=== PATIENT | female | born 1975 | race Caucasian/White ===

== ENCOUNTER 2016-09-09 17:19 | Emergency (ER) | payer OTHER ==
[~2016-09-09] VITALS: Wt 68.9 kg
[~2016-09-09 17:19] MED LIST: BACTRIM DS 8001 TA1 PO; BACTROBAN CREAM15 GM T; BENADRYL25 MG PO; CIPRO500 MG PO; CIPROFLOXACIN500 MG PO; CLINDAMYCIN HC300 MG PO; DAYPRO600 M1 PO; FIORICET 325 MG1 TAB PO; FIORICET W/CODE1 CAP PO; FLEXERIL10 MG PO; FLEXERIL5 MG PO; FLONASE 0.05% 121 EA NAS; HYDROCODONE BIT1 T11 PO; MEDROL DOSEPAK4 MG PO; MOTRIN600 MG PO; MOTRIN800 MG PO; Motrin,Rufen800 MG PO; NAPROSYN500 MG PO; NKHM; PERCOCET 325 MG1 TA2 PO; PHENERGAN W/ DE30 ML PO; PREDNICOT10 MG PO; PREDNISONE10 MG PO; PREDNISONE20 M1 PO; PREDNISONE20 MG PO; PRILOSEC20 MG PO; PRILOSEC40 M1 PO; PROAIR HFA0.09 MG/AC INH; PYRIDIUM200 MG PO; REGLAN10 MG PO; ROBAXIN750 MG PO; SERTRALINE25 MG PO; STOMACH PILL PO; TRAMADOL HCL50 MG PO; ULTRAM50 MG PO; ZOFRAN ODT4 MG SL
[2016-09-09 17:33] VITALS: BP 152/100
[2016-09-09] MEDS ORDERED: PREDNISONE50 MG PO (17:52)
[2016-09-09] MEDS ORDERED: ZYRTEC10 M3 PO (17:52)
== END 2016-09-09 17:56 | disposition home or self-care (01) ==
LOC: ED 17:19
DX: T65.91XA Toxic effect of unspecified substance, accidental (unintentional), initial encounter (principal); R21 Rash and other nonspecific skin eruption; Z88.0 Allergy status to penicillin; Z88.1 Allergy status to other antibiotic agents; Z88.6 Allergy status to analgesic agent; Z88.8 Allergy status to other drugs, medicaments and biological substances; Z79.899 Other long term (current) drug therapy; Y92.9 Unspecified place or not applicable

== ENCOUNTER 2017-06-02 16:33 | Emergency (ER) | payer OTHER ==
[~2017-06-02] VITALS: Wt 72.6 kg
[~2017-06-02 16:33] MED LIST changes: +PREDNISONE50 MG PO; +ZYRTEC10 M3 PO
[2017-06-02 16:42] VITALS: BP 114/84
[2017-06-02] MEDS ORDERED: CLINDAMYCIN HC300 MG PO (17:13)
== END 2017-06-02 17:17 | disposition home or self-care (01) ==
LOC: ED 16:33
DX: S61.411A Laceration without foreign body of right hand, initial encounter (principal); Z88.0 Allergy status to penicillin; Z88.1 Allergy status to other antibiotic agents; Z88.6 Allergy status to analgesic agent; Z79.899 Other long term (current) drug therapy; W26.0XXA Contact with knife, initial encounter; Y93.89 Activity, other specified; Y92.89 Other specified places as the place of occurrence of the external cause; Y99.8 Other external cause status

== ENCOUNTER → 2017-09-11 | Outpatient (CLI) | payer OTHER ==
[2017-09-11 09:32] LABS: BASO % 0.5 % (0.0-1.0); EOS # 0.2 10*3/uL (0.0-0.4); EOS % 4.3 % (1.0-4.0); HEMATOCRIT 39.8 % (37.0-47.0); HEMOGLOBIN 13.2 g/dl (12.0-16.0); LYMPH # 1.4 10*3/uL (1.3-4.4); LYMPH % 32.2 % (27.0-41.0); MEAN CELL VOLUME 91.7 fl (81.0-99.0); MEAN CORPUSCULAR HGB 30.4 pg (27.0-31.0); MEAN CORPUSCULAR HGB CONC 33.2 g/dl (33.0-37.0); MEAN PLATELET VOLUME 9.6 fl (9.6-12.3); MONO # 0.4 10*3/uL (0.1-1.0); MONO % 9.5 % (3.0-9.0); NEUT # 2.3 10*3/uL (2.3-7.9); NEUT % 53.3 % (47.0-73.0); NUCLEATED RED BLOOD CELL 0.9 % (0.0-0.0); PLATELET COUNT AUTOMATED 292 10*3/uL (130-400); RED BLOOD COUNT 4.34 10*6/uL (4.10-5.10); RED CELL DISTRI WIDTH 12.8 % (0-14.5); WHITE BLOOD COUNT 4.2 10*3/uL (4.8-10.8)
[2017-09-11 09:42] LABS: ALBUMIN 3.6 gm/dl (3.1-4.5); ALKALINE PHOSPHATASE 45 U/L (45-117); BUN 8 mg/dl (7-24); CHLORIDE 108 mmol/L (98-107); CHOLESTEROL 186 mg/dL (<200); CREATININE 0.56 mg/dL (0.55-1.02); HDL CHOLESTEROL 43 mg/dl (40-60); LDL CHOLESTEROL 128 mg/dL (9-159); POTASSIUM 3.7 mmol/L (3.5-5.1); SGOT/AST 15 IU/L (3-35); SGPT/ALT 22 U/L (12-78); SODIUM 141 mmol/L (136-145); TOTAL PROTEIN 7.1 gm/dL (6.4-8.2); TRIGLYCERIDES 76 mg/dl (<150); VLDL CHOLESTEROL 15 mg/dL (6-40)
== END | disposition home or self-care (01) ==
LOC: LAB 08:54
PROVIDERS: Nurse Practitioner Primary Care
DX: E55.9 Vitamin D deficiency, unspecified (principal); R79.89 Other specified abnormal findings of blood chemistry; Z68.28 Body mass index [BMI] 28.0-28.9, adult

== ENCOUNTER → 2017-10-09 | Outpatient (CLI) | payer OTHER | END | disposition home or self-care (01) | LOC: CT 10-07 16:00 | DX: H53.9 Unspecified visual disturbance (principal); G44.219 Episodic tension-type headache, not intractable ==

== ENCOUNTER 2017-12-01 12:01 | Emergency (ER) | payer OTHER ==
[~2017-12-01] VITALS: Ht 165.1 cm; Wt 78.9 kg
[2017-12-01 12:02] VITALS: BP 129/68
[2017-12-01] MEDS ORDERED: CEPHALEXIN500 M1 PO (12:43)
== END 2017-12-01 12:53 | disposition home or self-care (01) ==
LOC: ED 12:01
DX: L03.011 Cellulitis of right finger (principal); Z88.0 Allergy status to penicillin; Z88.6 Allergy status to analgesic agent; Z88.1 Allergy status to other antibiotic agents; Z88.8 Allergy status to other drugs, medicaments and biological substances; Z79.899 Other long term (current) drug therapy

== ENCOUNTER 2018-06-07 17:51 | Emergency (ER) | payer OTHER ==
[~2018-06-07] VITALS: Ht 165.1 cm; Wt 7.7 kg
[~2018-06-07 17:51] MED LIST changes: +CEPHALEXIN500 M1 PO; +TYLENOL325 M1 PO; +VIBRAMYCIN100 MG PO
[2018-06-07 17:54] VITALS: BP 111/70
== END 2018-06-07 20:32 | disposition home or self-care (01) ==
LOC: ED 17:51
DX: S60.222A Contusion of left hand, initial encounter (principal); Z88.0 Allergy status to penicillin; Z88.6 Allergy status to analgesic agent; Z88.1 Allergy status to other antibiotic agents; Z88.8 Allergy status to other drugs, medicaments and biological substances; Z79.2 Long term (current) use of antibiotics; Z79.899 Other long term (current) drug therapy; Z90.49 Acquired absence of other specified parts of digestive tract; W23.1XXA Caught, crushed, jammed, or pinched between stationary objects, initial encounter; Y93.89 Activity, other specified; Y92.89 Other specified places as the place of occurrence of the external cause; Y99.8 Other external cause status

== ENCOUNTER 2018-07-01 09:33 | Emergency (ER) | payer OTHER ==
[~2018-07-01] VITALS: Ht 167.6 cm; Wt 78.9 kg
[2018-07-01 09:34] VITALS: BP 105/73
[2018-07-01] MEDS ORDERED: TESSALON PERLE100 M1 PO (10:12)
[2018-07-01] MEDS ORDERED: FLONASE ALLERG9.9 ML NAS (10:12)
[2018-07-01] MEDS ORDERED: OMNICEF300 MG PO (10:12)
== END 2018-07-01 10:25 | disposition home or self-care (01) ==
LOC: ED 09:33
DX: J32.8 Other chronic sinusitis (principal); F17.200 Nicotine dependence, unspecified, uncomplicated; Z90.49 Acquired absence of other specified parts of digestive tract; Z98.51 Tubal ligation status; Z79.899 Other long term (current) drug therapy; Z88.0 Allergy status to penicillin; Z88.6 Allergy status to analgesic agent; Z88.5 Allergy status to narcotic agent

== ENCOUNTER 2018-08-20 09:10 | Emergency (ER) | payer OTHER ==
[~2018-08-20 09:10] MED LIST changes: +FLONASE ALLERG9.9 ML NAS; +OMNICEF300 MG PO; +TESSALON PERLE100 M1 PO
[2018-08-20 09:15] VITALS: BP 130/79
[2018-08-20] MEDS ORDERED: ROBAXIN500 M1 PO (09:46)
[2018-08-20] MEDS ORDERED: ANAPROX DS550 MG PO (09:46)
== END 2018-08-20 09:59 | disposition home or self-care (01) ==
LOC: ED 09:10
DX: M54.2 Cervicalgia (principal); M54.5 Low back pain; M79.18 Myalgia, other site; G43.909 Migraine, unspecified, not intractable, without status migrainosus; K21.9 Gastro-esophageal reflux disease without esophagitis; Z98.51 Tubal ligation status; Z90.49 Acquired absence of other specified parts of digestive tract; Z79.899 Other long term (current) drug therapy; Z88.0 Allergy status to penicillin; Z88.6 Allergy status to analgesic agent; Z88.1 Allergy status to other antibiotic agents; Z88.5 Allergy status to narcotic agent

== ENCOUNTER 2018-12-04 14:22 | Emergency (ER) | payer OTHER ==
[~2018-12-04] VITALS: Ht 165.1 cm; Wt 77.1 kg
[~2018-12-04 14:22] MED LIST changes: +ANAPROX DS550 MG PO; +ROBAXIN500 M1 PO
[2018-12-04 14:25] VITALS: BP 122/89
[2018-12-04] MEDS ORDERED: ZOFRAN4 MG PO (14:51)
== END 2018-12-04 15:03 | disposition home or self-care (01) ==
LOC: ED 14:22
DX: F41.9 Anxiety disorder, unspecified (principal); R11.0 Nausea; Z79.899 Other long term (current) drug therapy; Z88.0 Allergy status to penicillin; Z88.6 Allergy status to analgesic agent; Z88.1 Allergy status to other antibiotic agents; Z88.8 Allergy status to other drugs, medicaments and biological substances

== ENCOUNTER → 2019-01-20 | Outpatient (CLI) | payer OTHER ==
[~2019-01-20] MED LIST changes: +Tobrex Ophth S2.5 ML OPH; +ZOFRAN4 MG PO
== END | disposition home or self-care (01) ==
LOC: RAD 13:15
DX: M47.816 Spondylosis without myelopathy or radiculopathy, lumbar region (principal); M25.511 Pain in right shoulder; M54.2 Cervicalgia; M25.551 Pain in right hip; M54.41 Lumbago with sciatica, right side

== ENCOUNTER 2019-02-17 18:01 | Emergency (ER) | payer OTHER ==
[~2019-02-17] VITALS: Ht 167.6 cm; Wt 73.5 kg
[~2019-02-17 18:01] MED LIST changes: -Tobrex Ophth S2.5 ML OPH
[2019-02-17 18:02] VITALS: BP 129/64
[2019-02-17] MEDS ORDERED: Tobrex Ophth S2.5 ML OPH (18:35)
== END 2019-02-17 18:52 | disposition home or self-care (01) ==
LOC: ED 18:01
DX: H10.9 Unspecified conjunctivitis (principal); Z88.0 Allergy status to penicillin; Z88.6 Allergy status to analgesic agent; Z88.1 Allergy status to other antibiotic agents; Z88.8 Allergy status to other drugs, medicaments and biological substances; Z79.899 Other long term (current) drug therapy; Z79.2 Long term (current) use of antibiotics

== ENCOUNTER → 2019-03-02 | Outpatient (CLI) | payer OTHER ==
[~2019-03-02] MED LIST changes: +Tobrex Ophth S2.5 ML OPH
== END | disposition home or self-care (01) ==
LOC: US 09:23
DX: R59.1 Generalized enlarged lymph nodes (principal); R11.2 Nausea with vomiting, unspecified

== ENCOUNTER → 2019-05-16 | Outpatient (CLI) | payer OTHER | END | disposition home or self-care (01) | LOC: US 05-02 17:00 | DX: N83.201 Unspecified ovarian cyst, right side (principal); R93.89 Abnormal findings on diagnostic imaging of other specified body structures ==

== ENCOUNTER → 2019-07-05 | Outpatient (CLI) | payer OTHER | END | disposition home or self-care (01) | LOC: MAMMO 10:25 | DX: Z12.31 Encounter for screening mammogram for malignant neoplasm of breast (principal) ==

== ENCOUNTER → 2019-10-09 | Outpatient (CLI) | payer OTHER | END | disposition home or self-care (01) | LOC: RAD 14:52 | DX: M19.012 Primary osteoarthritis, left shoulder (principal); M25.712 Osteophyte, left shoulder ==

== ENCOUNTER → 2019-10-27 | Outpatient (CLI) | payer OTHER | END | disposition home or self-care (01) | LOC: MRI 07:30 | DX: M75.52 Bursitis of left shoulder (principal); M21.822 Other specified acquired deformities of left upper arm ==

== ENCOUNTER → 2020-04-01 | Outpatient (CLI) | payer OTHER | END | disposition home or self-care (01) | LOC: COVID19 11:55 | PROVIDERS: ATTEND Family Medicine | DX: U07.1 COVID-19 (principal) ==

== ENCOUNTER 2021-05-22 09:42 | Emergency (ER) | payer OTHER ==
[~2021-05-22] VITALS: Ht 167.6 cm; Wt 77.1 kg
[2021-05-22 09:52] VITALS: BP 112/84
[2021-05-22 11:31] LABS: BASO % 0.3 % (0.0-1.0); EOS % 0.5 % (1.0-4.0); HEMATOCRIT 41.4 % (37.0-47.0); LYMPH # 1.4 10*3/uL (1.3-4.4); LYMPH % 22.4 % (27.0-41.0); MEAN CELL VOLUME 90.4 fl (81.0-99.0); MEAN CORPUSCULAR HGB 30.1 pg (27.0-31.0); MEAN CORPUSCULAR HGB CONC 33.3 g/dl (33.0-37.0); MEAN PLATELET VOLUME 9.1 fl (9.6-12.3); MONO # 0.5 10*3/uL (0.1-1.0); MONO % 7.6 % (3.0-9.0); NEUT # 4.2 10*3/uL (2.3-7.9); NEUT % 68.9 % (47.0-73.0); PLATELET COUNT AUTOMATED 298 10*3/uL (130-400); RED BLOOD COUNT 4.58 10*6/uL (4.10-5.10); RED CELL DISTRI WIDTH 12.6 % (0-14.5)
[2021-05-22 11:44] LABS: ALBUMIN 3.4 gm/dl (3.1-4.5); ALKALINE PHOSPHATASE 44 U/L (45-117); BUN 6 mg/dl (7-24); CHLORIDE 108 mmol/L (98-107); CREATININE 0.47 mg/dL (0.55-1.02); POTASSIUM 3.9 mmol/L (3.5-5.1); SGOT/AST 9 IU/L (3-35); SGPT/ALT 19 U/L (12-78); SODIUM 139 mmol/L (136-145); TOTAL PROTEIN 7.5 gm/dL (6.4-8.2)
[2021-05-22 12:26] LABS: BILIRUBIN Negative (Negative); BLOOD Negative (Negative); CLARITY Clear (Clear); COLOR Yellow (Yellow); GLUCOSE Negative (Negative); KETONE 2+ (Negative); LEUKO ESTERASE Negative (Negative); NITRITE Negative (Negative); SPECIFIC GRAVITY 1.015 (1.001-1.030); UROBILINOGEN 0.2 E.U./dl (0.0-1.0)
[2021-05-22 12:41] LABS: BACTERIA 3+
[2021-05-22] MEDS ORDERED: CYCLOBENZAPRINE5 M3 PO (13:07)
[2021-05-22] MEDS ORDERED: MEDROL DOSEPAK4 MG PO (13:07)
== END 2021-05-22 13:13 | disposition home or self-care (01) ==
LOC: ED 09:42
PROVIDERS: Physician Assistant
DX: M54.16 Radiculopathy, lumbar region (principal); Z88.0 Allergy status to penicillin; Z88.1 Allergy status to other antibiotic agents; Z88.8 Allergy status to other drugs, medicaments and biological substances; Z88.6 Allergy status to analgesic agent; Z98.51 Tubal ligation status; Z90.49 Acquired absence of other specified parts of digestive tract; Z79.899 Other long term (current) drug therapy

== ENCOUNTER → 2021-06-30 | Outpatient (CLI) | payer OTHER ==
[~2021-06-30] MED LIST changes: +CYCLOBENZAPRINE5 M3 PO
== END | disposition home or self-care (01) ==
LOC: MRI 08:00
PROVIDERS: ATTEND Family Medicine
DX: M47.812 Spondylosis without myelopathy or radiculopathy, cervical region (principal); M51.36 Other intervertebral disc degeneration, lumbar region; M48.061 Spinal stenosis, lumbar region without neurogenic claudication; G83.9 Paralytic syndrome, unspecified; M41.84 Other forms of scoliosis, thoracic region; J34.89 Other specified disorders of nose and nasal sinuses

== ENCOUNTER → 2025-02-03 | Outpatient (CLI) | payer OTHER | END | disposition home or self-care (01) | LOC: US 09:55 | PROVIDERS: ATTEND Obstetrics & Gynecology | DX: N92.1 Excessive and frequent menstruation with irregular cycle (principal) ==